=== PATIENT | male | born 1940 | race Caucasian/White ===

== ENCOUNTER 2019-10-21 17:36 | Emergency (ER) | payer MEDICARE, BC ==
[2019-10-21] MEDS ORDERED: LORazepam 2 MG/ML SDV ONE (17:50)
[2019-10-21] MEDS ORDERED: Acetaminophen 325 MG Tab PO STA (17:50)
--- NOTE | 2019-10-21 19:27 | EDM.PDOC ---
ED HPI GENERAL MEDICAL PROBLEM - General Chief Complaint: Gastrointestinal Problem Stated Complaint: RECTAL BLEEDING Time Seen by Provider: 10/21/19 18:55 Source of Information: Reports: Patient, Family () History Limitations: Reports: Physical Impairment (Patient a poor historian due to expressive aphasia; most of the patient's history provided by his ) - History of Present Illness INITIAL COMMENTS - FREE TEXT/NARRATIVE: Mr. Mendez is a very pleasant 78-year-old gentleman with a past medical history significant for atrial fibrillation, on Coumadin, who is now brought to the ED due to bright red blood per rectum. The patient's tells me that the patient occasionally has constipation, including a recent episode since 10/18/2019. His gave him some MiraLAX yesterday, and he had multiple bowel movements today, with the most recent bowel movement around 15:30 MDT. The bowel movement was followed by painless bright red blood per rectum. The patient's tells me that the patient oftentimes has blood associated with a bowel movement when he is constipated, but the volume of the bleeding today seemed greater than usual. The patient has not experienced any abdominal pain, lightheadedness, nausea, or vomiting. Here in the ED, the patient was initially found to be slightly tachycardic at 104 bpm, otherwise, he is hemodynamically stable, afebrile, saturating 95% on room air. Other than the constipation and rectal bleeding, the patient's denies that the patient has had a recent fever, chills, sore throat, ear pain, nasal or si nus congestion, cough, dyspnea, chest pain, palpitations, nausea, vomiting, diarrhea, abdominal pain, urinary symptoms, recent weight gain or weight loss, recent black bowel movements, recent joint aches, headaches, or rashes. The patient's PCP is Karen Aburto NP. His Urologist is Dr. Hunter Dahl. His cardiology midlevel is NOHEMY Oconnor. - Related Data Allergies Allergy/AdvReac Type Severity Reaction Status Date / Time cimetidine [From Tagamet] Allergy Severe Renal Verified 10/21/19 18:11 Failure Home Meds: Home Meds Aspirin 81 mg PO DAILY 10/21/19 [History] Clotrimazole [Clotrimazole 1%] 1 applic TOP BID PRN 10/21/19 [History] Docusate Sodium [Colace] 100 mg PO BID 10/21/19 [History] Gabapentin [Neurontin] 100 mg PO BID 10/21/19 [History] Metoprolol Succinate 100 mg PO BID 10/21/19 [History] Nitroglycerin 0.4 mg SL ASDIRECTED PRN 10/21/19 [History] Omeprazole Magnesium [Prilosec Otc] 20 mg PO ASDIRECTED 10/21/19 [History] Tamsulosin [Tamsulosin 24 Hr] 0.4 mg PO DAILY 10/21/19 [History] Ubidecarenone [Co Q-10] 100 mg PO DAILY 10/21/19 [History] Warfarin [Coumadin] 2.5 mg PO MOWEFR 10/21/19 [History] Warfarin [Coumadin] 5 mg PO SUTUTHSA 10/21/19 [History] atorvaSTATin Calcium [Lipitor] 10 mg PO DAILY 10/21/19 [History] lisinopriL [Lisinopril] 2.5 mg PO DAILY 10/21/19 [History] Past Medical History Cardiovascular History: Reports: Afib, High Cholesterol, Hypertension Gastrointestinal History: Reports: GERD, PUD Genitourinary History: Reports: BPH, Chronic Renal Insuffiency, Urinary Incontinence Neurological History: 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 GI/Abdominal: Reports: Constipation (recurrent) ED EXAM, GI/ABD - Physical Exam Exam: See Below Exam Limited By: No Limitations General Appearance: Alert, WD/WN, No Apparent Distress Eyes: Bilateral: Normal Appearance, EOMI Ears: Normal External Exam, Hearing Loss Nose: Normal Inspection Throat/Mouth: Normal Inspection, Normal Lips, Normal Voice, No Airway Compromise Head: Atraumatic, Normocephalic Neck: Normal Inspection Respiratory/Chest: No Respiratory Distress, Lungs Clear, Normal Breath Sounds, No Accessory Muscle Use Cardiovascular: Normal Peripheral Pulses, No Gallop, No JVD, No Murmur, No Rub, Irregularly Irregular (regular rate) GI/Abdominal Exam: Normal Bowel Sounds, Soft, Non-Tender, No Organomegaly, No Distention, No Abnormal Bruit, No Mass (Male) Exam: Deferred Rectal (Males) Exam: Normal Exam, Normal Rectal Tone, Heme - Stool (brown, liquidy) Back Exam: Normal Inspection, Full Range of Motion, NT Extremities: Normal Inspection, Normal Range of Motion, No Pedal Edema, Normal Capillary Refill Neurological: Alert, Oriented, Normal Cognition, Other (Expressive aphasia) Psychiatric: Normal Affect Skin Exam: Warm, Dry, Intact, Normal Color, No Rash Course - Vital Signs Last Recorded V/S: Last Vital Signs Temp 36.4 C 10/21/19 18:10 Pulse 104 H 10/21/19 18:10 Resp 18 10/21/19 18:10 BP 131/85 10/21/19 18:10 Pulse Ox 95 10/21/19 18:10 Orthostatic Blood Pressure [ 129/100 Standing] Orthostatic Blood Pressure [ 129/87 Supine] - Orders/Labs/Meds Orders: Active Orders 24 hr Category Date Time Status Orthostatic Vital Signs [RC] STAT Care 10/21/19 19:21 Active Labs: Laboratory Tests 10/21/19 10/21/19 Range/Units 19:35 19:35 WBC 7.00 (4.23-9.07) K/mm3 RBC 4.93 (4.63-6.08) M/mm3 Hgb 15.3 (13.7-17.5) gm/dl Hct 45.7 (40.1-51.0) % MCV 92.7 H (79.0-92.2) fl MCH 31.0 (25.7-32.2) pg MCHC 33.5 (32.2-35.5) g/dl RDW Std Deviation 46.3 H (35.1-43.9) fL Plt Count 188 (163-337) K/mm3 MPV 8.8 L (9.4-12.3) fl Neut % (Auto) 74.7 H (34.0-67.9) % Lymph % (Auto) 14.6 L (21.8-53.1) % [place] % (Auto) 8.6 (5.3-12.2) % Eos % (Auto) 1.4 (0.8-7.0) Baso % (Auto) 0.4 (0.1-1.2) % Neut # (Auto) 5.23 (1.78-5.38) K/mm3 Lymph # (Auto) 1.02 L (1.32-3.57) K/mm3 [place] # (Auto) 0.60 (0.30-0.82) K/mm3 Eos # (Auto) 0.10 (0.04-0.54) K/mm3 Baso # (Auto) 0.03 (0.01-0.08) K/mm3 PT 16.0 H (9.7-12.0) SECONDS INR 1.50 Meds: Medications Discontinued Medications Generic Name Dose Route Start Last Admin Trade Name Freq PRN Reason Stop Dose Admin Acetaminophen 650 mg 10/21/19 17:50 10/21/19 18:32 Tylenol PO 10/21/19 17:51 Not Given NOW STA Aripiprazole 2 mg 10/21/19 17:51 10/21/19 18:32 Abilify PO 10/21/19 17:52 Not Given ONETIME ONE Lorazepam 1 mg 10/21/19 17:50 10/21/19 18:32 Ativan .XX 10/21/19 17:51 Not Given ONETIME ONE - Re-Assessments/Exams Free Text/Narrative Re-Assessment/Exam: 10/21/19 19:22 As above, the patient suffers from recurrent constipation, and has had constipation since this past Friday, treated with MiraLAX yesterday, with a number of bowel movements today, the most recent of which was followed by a larger than usual amount of bright red blood. On rectal examination, the patient had defecated a considerable amount of liquid brown stool, which was heme negative. No obvious external hemorrhoids were seen or palpated on rectal exam. For today's purposes, I have ordered a CBC just to be satisfied that he has not become anemic, along with an INR, since he is on Coumadin. Because he was mildly tachycardic on his initial vitals, I have also ordered orthostatics, noting that the patient has not been lightheaded. 10/21/19 20:01 The patient is not orthostatic. 10/21/19 20:35 The patient's CBC is unremarkable. His INR is subtherapeutic at 1.50. Test results discussed with the patient's (the patient is in the restroom). I will discharge the patient home with the recommendation that they contact the Coumadin clinic tomorrow morning to inform him of the patient's low INR. O therwise, the patient may resume his usual activities. Departure - Departure Time of Disposition: 20:36 Disposition: Home, Self-Care 01 Condition: Good Clinical Impression: Bright red blood per rectum, Subtherapeutic international normalized ratio (INR) - Discharge Information *PRESCRIPTION DRUG MONITORING PROGRAM REVIEWED*: Not Applicable *COPY OF PRESCRIPTION DRUG MONITORING REPORT IN PATIENT BELKIS: Not Applicable Instructions: Rectal Bleeding, [id number] Referrals: Karen Aburto NP [Primary Care Provider] - Hunter Dahl MD [Ordering Only Provider] - Iqra Encarnacion PA-C [Ordering Only Provider] - Forms: ED Department Discharge Additional Instructions: You were seen in the emergency room after passing bright red blood per rectum following a bowel movement, in the setting of recent constipation. On examination of the ER, your stool was negative for blood. Work-up in the ER included blood work and positional blood pressure checks. Your blood work found that you are not anemic, and your blood pressure maintained itself between lying and standing, therefore you are not intravascularly dry, however, your INR was found to be low at 1.5. We recommend that you contact your coumadin clinic in the morning, no notify them of your subtherapeutic INR. Otherwise, you may resume your usual activities. Please follow-up with your PCP, Karen Aburto NP, to discuss your constipation issues. If any other problems, please do not hesitate to return to the ER. Sepsis Event Note (ED) - Evaluation Sepsis Screening Result: No Definite Risk - Focused Exam Vital Signs: Vital Signs Temp Pulse Resp BP Pulse Ox 10/21/19 18:10 36.4 C 104 H 18 131/85 95 - My Orders Last 24 Hours: My Active Orders 10/21/19 19:21 Orthostatic Vital Signs [RC] STAT - Assessment/Plan Last 24 Hours: My Active Orders 10/21/19 19:21 Orthostatic Vital Signs [RC] STAT
== END 2019-10-21 20:54 | disposition home or self-care (01) ==
LOC: JD.ED 17:36
DX: K62.5 Hemorrhage of anus and rectum (principal); R79.1 Abnormal coagulation profile; I48.91 Unspecified atrial fibrillation; E78.00 Pure hypercholesterolemia, unspecified; I12.9 Hypertensive chronic kidney disease with stage 1 through stage 4 chronic kidney disease, or unspecified chronic kidney disease; N18.9 Chronic kidney disease, unspecified; E66.9 Obesity, unspecified; Z68.34 Body mass index [BMI] 34.0-34.9, adult; Z79.01 Long term (current) use of anticoagulants; Z88.8 Allergy status to other drugs, medicaments and biological substances; Z79.82 Long term (current) use of aspirin; Z79.899 Other long term (current) drug therapy; Z86.73 Personal history of transient ischemic attack (TIA), and cerebral infarction without residual deficits
CPT/HCPCS: 36415; 85025; 85610; 99283